=== PATIENT | male | born 1955 | race Caucasian/White ===

== ENCOUNTER 2024-11-02 11:16 | Emergency (ER) | payer OTHER, SELFPAY ==
[2024-11-02 11:17] VITALS: BP 133/79
[2024-11-02 13:43] VITALS: BP 122/74
--- NOTE | 2024-11-02 13:50 | ED.GENMED ---
History of Present Illness
General
Chief Complaint: DVT/Possible Blood Clot
Time Seen by Provider: 11/02/24 12:06
History of Present Illness
History of Present Illness:
Note:
CHIEF COMPLAINT(S)
Pain in the back of the knee for three weeks.
HISTORY OF PRESENT ILLNESS
The patient is a 69-year-old male with pain localized to the back of the left knee, which has been present for approximately three weeks. He reports it started small and was only noticed more significantly last . The patients niece, who is a
pharmacist, advised that it could be either an insect bite or a blood clot, which prompted the visit. The pain sometimes alleviates when topical analgesics, such as salonpas, are applied. The patient denies any recent travel by plane or car for
extended periods, is not on blood thinners, has had no surgeries in the past three months, and has no history of blood clots or deep vein thrombosis. The possibility of a ruptured Bakers cyst was mentioned, as it could be a common cause of such
symptoms. An ultrasound has been discussed as the next step to rule out a blood clot.
PHYSICAL EXAM
- The patient is well-appearing and not in apparent distress.
- Noted mild asymmetric swelling of the left lower extremity.
- Tenderness present in the proximal calf and popliteal space.
- No skin erythema or open wounds were observed.
- Nursing notes reviewed and vital signs reviewed.
PLAN
The plan is to perform an ultrasound of the leg to check for the presence of any blood clots.
DIFFERENTIAL DIAGNOSIS
The Differential Diagnosis includes, in no particular order and is not limited to:
1. Deep Vein Thrombosis
2. Ruptured Bakers Cyst
3. Insect Bite
4. Muscle Strain
5. Tendonitis
6. Cellulitis
7. Popliteal Artery Aneurysm
8. Osteoarthritis
9. Gout
10. Venous Insufficiency
Disposition:
SUMMARY OF ENCOUNTER
The patient, a 69-year-old male, presented with discomfort and swelling in the left calf for the past three weeks. An ultrasound was performed to rule out deep vein thrombosis (DVT); the results were negative for DVT. However, the ultrasound
identified a complex fluid collection in the popliteal space, most likely suggesting a Bakers cyst.
PLAN
The patient was advised on supportive care measures and it was recommended that he follow up with an auto radiator specialist if symptoms do not improve.
PATIENT EDUCATION AND COUNSELING
Supportive care was discussed with the patient, including monitoring symptoms and seeking further orthopedic consultation if there is no improvement.
FOLLOW-UP INSTRUCTIONS
The patient was advised to seek an orthopedic follow-up if symptoms do not improve.
MEDICAL DECISION MAKING
The patients presentation included acute concerns and required consideration of several potential diagnoses. An ultrasound was used to assess the presence of a DVT, which was not found. The imaging led to the identification of a possible Bakers
cyst. The care plan is impacted by the complexity of accurately diagnosing the underlying cause of the calf discomfort and swelling while ensuring appropriate specialty follow-up.
Past History
Past History
ED Past Medical History: None
ED Past Surgical History: None
Social History
Living: with family
Phy Exam
Physical Exam
Physical Exam:
.
Course
Orders/Labs/Results
Orders:
Orders
11/02/24 12:47
Venous Doppler Lwr Ext Left [US Periph Venous LOWER Ext LT] Urgent
Comment:
Reason For Exam: L calf pain
Vital Signs
Initial and Last Documented VS:
Initial Vital Signs
Temp Pulse Resp BP Pulse Ox
98.6 F 73 20 133/79 95
11/02/24 11:17 11/02/24 11:17 11/02/24 11:17 11/02/24 11:17 11/02/24 11:17
Last Documented Vital Signs
Temp Pulse Resp BP Pulse Ox
98.6 F 72 18 122/74 98
11/02/24 11:17 11/02/24 13:43 11/02/24 13:43 11/02/24 13:43 11/02/24 13:43
*Critical Care Note
Total Time (30-74mins, 75-104mins- exclusive of procedures): Not Applicable
ED Attending Note
-
Portions of this chart may have been created with voice recognition software.� Occasional wrong word or��sound alike� substitutions may have occurred due to the inherent limitations of voice recognition software.
Discharge Plan
Departure
Patient Disposition: Home (Routine Discharge)
Date of Disposition: 11/02/24
Time of Disposition: 14:05
Patient with high blood pressure during this ER visit?: No
Discharge Problem:
Synovial cyst of left popliteal space
Instructions: Armijo's Cyst (DC)
Referrals:
Kenneth Davila MD [Active, Orthopedics]
Jessica Maldonado DO [Family Provider, Family Practice]
Interventions
Interventions:
*Risk Screen - Suicide Last Done: 11/02/24 11:17
*General Assessment Last Done: 11/02/24 11:17
*Neglect/Abuse Screening Last Done: 11/02/24 11:17
*ED- Fall Risk Assessment Last Done: 11/02/24 12:08
ED- Cardiac Assessment Last Done: 11/02/24 12:08
ED- Pulmonary Assessment Last Done: 11/02/24 12:08
ED-Peripheral Vascular Assessment Last Done: 11/02/24 12:09
ED-Skin Assessment Last Done: 11/02/24 12:08
Discharge Date and Time
Print Language: PERUVIAN
== END 2024-11-02 15:57 | disposition home or self-care (01) ==
LOC: EMR 11:16
PROVIDERS: EMERGENCY PHYSICIAN Student in an Organized Health Care Education/Training Program; FAMILY PHYSICIAN Family Medicine
DX: M71.22 Synovial cyst of popliteal space [Baker], left knee (principal); R22.42 Localized swelling, mass and lump, left lower limb
CPT/HCPCS: 99284; 93971